=== PATIENT | female | born 1965 | race African-American/Black ===

== ENCOUNTER 2021-11-26 20:05 | Emergency (ER) | payer OTHER ==
[2021-11-26] MEDS ORDERED: Ketorolac Tromethamine 30 MG/ML VIAL ONE (21:16)
== END 2021-11-26 22:24 | disposition home or self-care (01) ==
LOC: ERS 20:05
DX: M54.41 Lumbago with sciatica, right side (principal); I10 Essential (primary) hypertension; E11.9 Type 2 diabetes mellitus without complications; E78.00 Pure hypercholesterolemia, unspecified
CPT/HCPCS: 96372; 99283; J1885